=== PATIENT | female | born 1980 | race Caucasian/White ===

== ENCOUNTER 2020-03-14 15:51 | Emergency (ER) | payer OTHER, MEDICAID ==
[~2020-03-14] VITALS: Ht 157.5 cm; Wt 54.0 kg
[2020-03-14 15:53] VITALS: BP 118/75
== END 2020-03-14 17:30 | disposition home or self-care (01) ==
LOC: ER 15:51
DX: F43.22 Adjustment disorder with anxiety (principal); F43.10 Post-traumatic stress disorder, unspecified
CPT/HCPCS: 81025; 93005; 99283